=== PATIENT | male | born 1965 | race Caucasian/White ===

== ENCOUNTER → 2018-01-07 15:28 | Outpatient (CLI) | payer OTHER, SELFPAY | PROVIDERS: Visit Provider Physician Assistant | DX: L02.91 Cutaneous abscess, unspecified (principal) | CPT/HCPCS: 87070; 87075; 87077; 87186; 87205 ==

== ENCOUNTER 2019-04-02 14:30 | Outpatient (RCR) | payer OTHER, SELFPAY ==
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
--- NOTE | 2019-05-29 18:20 | HP.PTDCSUM ---
HP - PT D/C Summary It has been my pleasure to treat VANNESSA RIVAS under orders from Charlie Middleton, for the diagnosis of R hip pain/OA, bursitis for a total of 7 visit(s). Discharge Date: 04/02/19 Please see the following information for a summary of their discharge status. - Subjective Subjective: Sleeping better. Pain getting better adn mostly gone with short pain. R leg numb for years. Feels like he can do ex at home with purple adn blue straps at home. To Dr. Middleton in one month. - Pain R hip pain Pain Intensity (Out of 10): 0 - Overall Improvement % Improvement: 75 - Objective Objective/Function: No tenderness R hip, still tight ITB. strong adn painfree in hips. No antalgia in gait adn steps are normal. Overall doing excellent. - Goals Goal 1:: No tenderness in r GT area and improved ITB flexibility. Goal Progress: Goal Met Goal 2:: Patient sleep without interruption from hip pain at night. Goal Progress: Goal Met Goal 3:: Pt feel 90% better in R lateral hip pain. Goal Progress: Goal Met Goal 4:: I approp HEP to limit future problems. Goal Progress: Goal Met - Plan Plan: d/c to HEp - D/C Information Discharge Comments: Pt to cotinue via HEP adn f/u with doctor in 4 weeks. If there are questions or concerns regarding this patient's physical therapy, please feel free to call me at [phone]. Thank you for the referral of this patient. Sincerely, Jorgito Silva, DPT, OCS, CSCS
== END 2019-04-02 19:00 | disposition home or self-care (01) ==
LOC: PT 14:30
PROVIDERS: Referring Provider Orthopaedic Surgery; Visit Provider Orthopaedic Surgery
DX: M25.551 Pain in right hip (principal); M16.11 Unilateral primary osteoarthritis, right hip; M70.61 Trochanteric bursitis, right hip; M76.31 Iliotibial band syndrome, right leg
CPT/HCPCS: 97035; 97110; 97162; 97530